=== PATIENT | female | born 1940 | race Caucasian/White ===

== ENCOUNTER 2016-11-26 16:53 | Emergency (ER) | payer MEDICARE, MEDICAID ==
[~2016-11-26] VITALS: Ht 160 cm; Wt 90.0 kg
[~2016-11-26 16:53] MED LIST: /BISO10TA; ASPI81CH32 PO; BABY81CH; BISO10TA6 PO; CALCIUM PO; CHOLECALCIFEROL PO; CRES5TAB; HYDR25TA6; LIPI20TA PO; LISI20TA5; LOSA50TA20 PO; NITR0.4S; NITR4TASL SL; PLAV1TAB2 PO; PLAV75TA2; TAGAMET; ZANTTAB PO
[2016-11-26] MEDS ORDERED: NS 500 ML IV ONE (17:15)
[2016-11-26] MEDS ORDERED: NS 1,000 ML IV SCH (17:15)
[2016-11-26 18:36] LABS: MEAN CORPUSCULAR HEMOGLOBIN 29.3 pg (27.0-33.0); MEAN CORPUSCULAR HGB CONC 34.4 g/dl (32.0-36.5); MEAN CORPUSCULAR VOLUME 85.2 fl (80.0-96.0); PLATELET COUNT, AUTOMATED 181 10^3/uL (150-450); RED CELL DISTRIBUTION WIDTH 14.4 % (11.5-14.5)
[2016-11-26 18:44] LABS: ADD MANUAL DIFFER YES; DIFF SLIDE NUMBER 316
[2016-11-26 18:59] LABS: ALBUMIN 3.5 GM/DL (3.2-5.2); ALKALINE PHOSPHATASE 82 U/L (45-117); ALT/SGPT 31 U/L (12-78); ANION GAP 6 MEQ/L (8-16); AST/SGOT 22 U/L (15-37); BILIRUBIN,DIRECT 0.2 MG/DL (0.0-0.2); BILIRUBIN,TOTAL 0.6 MG/DL (0.2-1.0); BLOOD UREA NITROGEN 12 MG/DL (7-18); CALCIUM LEVEL 8.8 MG/DL (8.8-10.2); CARBON DIOXIDE LEVEL 26 MEQ/L (21-32); CHLORIDE LEVEL 102 MEQ/L (98-107); CREATININE FOR GFR 0.63 MG/DL (0.55-1.02); GLOMERULAR FILTRATION RATE > 60.0 (>39); GLUCOSE, FASTING 121 MG/DL (83-110); SODIUM LEVEL 134 MEQ/L (136-145); TOTAL PROTEIN 7.4 GM/DL (6.4-8.2)
--- NOTE | 2016-11-26 19:02 | REP ---
HISTORY: Abdominal pain. Nausea, vomiting and diarrhea. COMPARISON: Chest 11/19/2015. FINDINGS: Supine and upright views of the abdomen show the intestinal gas pattern to be nonspecific. Gas and stool is seen throughout the colon within the rectosigmoid region. The organ silhouettes insofar as delineated appear unremarkable. No abdominal calcific densities are seen within the abdomen or pelvis. The accompanying single frontal view of the chest shows no free subdiaphragmatic air, cardiomegaly, infiltrates or effusions. IMPRESSION: Nonspecific intestinal gas pattern. The accompanying frontal view of the chest is unchanged from the prior exam. Signed by Yomi Torres DO 11/26/2016 07:33 P
[2016-11-26 19:34] LABS: EOSINOPHILS 3 % (0-5)
[2016-11-26] MEDS ORDERED: ZOFR4TAB3 PO (21:17)
[2016-11-26 21:30] VITALS: BP 155/67
[2016-11-26] MEDS ORDERED: ONDANSETRON 4 MG ORAL DISINTEGRATING TAB (S0181) PO ONE (21:30)
--- NOTE | 2016-11-27 20:42 | ECGEPIP ---
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
== END 2016-11-26 21:34 | disposition home or self-care (01) ==
LOC: M ED 16:53
DX: R11.2 Nausea with vomiting, unspecified (principal); R19.7 Diarrhea, unspecified; I11.9 Hypertensive heart disease without heart failure; E78.5 Hyperlipidemia, unspecified; Z95.1 Presence of aortocoronary bypass graft; Z79.899 Other long term (current) drug therapy; Z79.82 Long term (current) use of aspirin

== ENCOUNTER → 2017-02-17 | Outpatient (CLI) | payer MEDICARE ==
[~2017-02-17] MED LIST changes: +ZOFR4TAB3 PO
--- NOTE | 2017-02-17 09:31 | REPMRS ---
Patient History The patient states she had a clinical breast exam in 02/15 Patient is postmenopausal. No known family history of cancer. Digital Woman Screen Mammo: February 17, 2017 - Exam #: [id number] Bilateral CC and MLO view(s) were taken. Technologist: Latyoa Anderson, Technologist Prior study comparison: January 17, 2016, digital woman screen mammo performed at [facility] to [facility]. January 16, 2015, digital woman screen mammo performed at [facility] to [facility]. FINDINGS: There are scattered fibroglandular densities. There has been no change in the appearance of the mammogram from the prior studies. There is a mild amount of residual fibroglandular tissue which is fairly symmetric. There is no interval development of dominant mass, architectural distortion, or clustered microcalcification suggestive of malignancy. ASSESSMENT: BI-RADS/ACR category 1 mammogram. Negative. Recommendation Routine screening mammogram in 1 year (for women over age 40). This mammogram was interpreted with the aid of an FDA-approved computer-aided dectection system. Electronically Signed By: Curt Infante MD 02/17/17 0921
== END ==
LOC: M WHC 08:04
PROVIDERS: ATTEND Nurse Practitioner Family
DX: Z12.31 Encounter for screening mammogram for malignant neoplasm of breast (principal); Z78.0 Asymptomatic menopausal state

== ENCOUNTER 2018-04-20 05:43 | Emergency (ER) | payer MEDICARE ==
[~2018-04-20] VITALS: Ht 157.5 cm; Wt 90.0 kg
[~2018-04-20 05:43] MED LIST changes: -LOSA50TA20 PO; +LOSA50TA88 PO; +ZOFR4TAB14 PO; -ZOFR4TAB3 PO
[2018-04-20] MEDS ORDERED: METH2.5T48 (05:54)
[2018-04-20] MEDS ORDERED: FOLI800C PO (05:54)
[2018-04-20] MEDS ORDERED: ASPIRIN 325 MG TAB PO ONE (06:30)
[2018-04-20 06:33] LABS: BASO % 0.6 % (0.0-1.0); EOS # 0.3 10^3/uL (0.0-0.50); EOS % 4.3 % (0.0-3.0); HEMATOCRIT 40.1 % (36.0-47.0); HEMOGLOBIN 13.6 g/dl (12.0-15.5); LYMPH % 27.2 % (24.0-44.0); MEAN CORPUSCULAR HEMOGLOBIN 29.6 pg (27.0-33.0); MEAN CORPUSCULAR HGB CONC 33.9 g/dl (32.0-36.5); MEAN CORPUSCULAR VOLUME 87.2 fl (80.0-96.0); MONO # 0.7 10^3/uL (0.0-0.8); MONO % 9.8 % (0.0-5.0); NEUTROPHILS # 4.1 10^3/uL (1.8-7.7); NEUTROPHILS % 57.7 % (36.0-66.0); PLATELET COUNT, AUTOMATED 171 10^3/uL (150-450); WHITE BLOOD COUNT 7.2 10^3/uL (4.0-10.0)
[2018-04-20 06:37] LABS: INR 0.99; PROTHROMBIN TIME 13.2 SECONDS (12.1-14.4)
[2018-04-20 06:38] LABS: PARTIAL THROMBOPLASTIN TIME 28.7 SECONDS (25.4-37.6)
[2018-04-20 06:47] LABS: BLOOD UREA NITROGEN 9 MG/DL (7-18); CALCIUM LEVEL 8.8 MG/DL (8.8-10.2); CARBON DIOXIDE LEVEL 26 MEQ/L (21-32); CHLORIDE LEVEL 107 MEQ/L (98-107); CPK CREATINE PHOSPHOKINASE 111 U/L (26-192); CREATININE FOR GFR 0.71 MG/DL (0.55-1.30); GLOMERULAR FILTRATION RATE > 60.0 (>39); GLUCOSE, FASTING 118 MG/DL (70-100); MB/CK RELATIVE INDEX 1.62 (< OR =4); POTASSIUM SERUM 3.7 MEQ/L (3.5-5.1); SODIUM LEVEL 142 MEQ/L (136-145); TROPONIN I < 0.02 NG/ML (< 0.10)
--- NOTE | 2018-04-20 07:28 | ECGEPIP ---
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
[2018-04-20 08:33] LABS: CPK CREATINE PHOSPHOKINASE 109 U/L (26-192); MB/CK RELATIVE INDEX 1.56 (< OR =4); TROPONIN I < 0.02 NG/ML (< 0.10)
--- NOTE | 2018-04-20 08:36 | REP ---
Chest one-view HISTORY: Chest pain Comparison: 11/19/2015 The lungs are clear. The heart is normal in size. The pulmonary vasculature is normal in appearance. Impression: No acute disease. Electronically Signed by Woo Heath MD 04/20/2018 08:28 A
[2018-04-20 09:00] VITALS: BP 139/76
--- NOTE | 2018-04-21 06:21 | ECGEPIP ---
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
== END 2018-04-20 09:17 | disposition home or self-care (01) ==
LOC: M ED 05:43
DX: R07.89 Other chest pain (principal); M79.602 Pain in left arm; I10 Essential (primary) hypertension; E78.5 Hyperlipidemia, unspecified; K21.9 Gastro-esophageal reflux disease without esophagitis; F41.9 Anxiety disorder, unspecified; M19.90 Unspecified osteoarthritis, unspecified site; Z95.5 Presence of coronary angioplasty implant and graft; Z95.1 Presence of aortocoronary bypass graft; Z79.899 Other long term (current) drug therapy; Z79.82 Long term (current) use of aspirin

== ENCOUNTER → 2018-05-28 | Outpatient (CLI) | payer MEDICARE ==
[~2018-05-28] MED LIST changes: +FOLI800C PO; +METH2.5T48
--- NOTE | 2018-05-28 10:04 | REPMRS ---
Patient History The patient states she had a clinical breast exam in 04/2018. Patient is postmenopausal. No known family history of cancer. No Hormone Replacement Therapy 3D TOMOSYNTHESIS WAS PERFORMED. Digital Woman Screen Mammo: May 28, 2018 - Exam #: [id number] Bilateral CC and MLO view(s) were taken. Technologist: Aleshia Deal, Technologist Prior study comparison: February 17, 2017, digital woman screen mammo performed at [facility] [employer] to [facility]. January 17, 2016, digital woman screen mammo performed at [facility] to [facility]. FINDINGS: There are scattered fibroglandular densities. There has been no change in the appearance of the mammogram from the prior studies. There is a mild amount of residual fibroglandular tissue which is fairly symmetric. There is no interval development of dominant mass, architectural distortion, or clustered microcalcification suggestive of malignancy. Assessment: BI-RADS/ACR category 1 mammogram. Negative Mammogram. Recommendation Routine screening mammogram in 1 year (for women over age 40). This mammogram was interpreted with the aid of an FDA-approved computer-aided dectection system. Electronically Signed By: Curt Infante MD 05/28/18 1656
== END ==
LOC: M WHC 08:56
PROVIDERS: ATTEND Physician Assistant Medical
DX: Z12.31 Encounter for screening mammogram for malignant neoplasm of breast (principal)

== ENCOUNTER → 2019-04-01 | Outpatient (REF) | payer MEDICARE ==
[~2019-04-01] MED LIST changes: -/BISO10TA; -ASPI81CH32 PO; +ASPI81CH33 PO; +BISO10TA14 PO; -BISO10TA6 PO; -METH2.5T48; +METH2.5T48 PO; +ZANT150T40 PO; -ZANTTAB PO; +ZEBE1TAB
== END ==
LOC: M LAB REF 12:16
PROVIDERS: ATTEND Physician Assistant
DX: R35.0 Frequency of micturition (principal)

== ENCOUNTER → 2020-07-04 | Outpatient (REF) | payer MEDICARE ==
[2020-07-04 16:44] LABS: BASO # 0.1 10^3/uL (0.0-0.2); BASO % 0.9 % (0.0-1.0); EOS # 0.2 10^3/uL (0.0-0.5); EOS % 3.2 % (0.0-3.0); HEMATOCRIT 41.4 % (36.0-47.0); HEMOGLOBIN 13.5 g/dl (12.0-15.5); LYMPH % 26.6 % (24.0-44.0); MEAN CORPUSCULAR HEMOGLOBIN 29.5 pg (27.0-33.0); MEAN CORPUSCULAR HGB CONC 32.6 g/dl (32.0-36.5); MEAN CORPUSCULAR VOLUME 90.4 fl (80.0-96.0); MONO # 0.6 10^3/uL (0.0-0.8); MONO % 8.3 % (2.0-8.0); NEUTROPHILS # 4.6 10^3/uL (1.5-8.5); NEUTROPHILS % 60.7 % (36.0-66.0); PLATELET COUNT, AUTOMATED 170 10^3/uL (150-450); RED BLOOD COUNT 4.58 10^6/uL (4.00-5.40); WHITE BLOOD COUNT 7.6 10^3/uL (4.0-10.0)
[2020-07-04 17:11] LABS: ALBUMIN 3.6 GM/DL (3.2-5.2); ALT/SGPT 24 U/L (12-78); BILIRUBIN,TOTAL 0.3 MG/DL (0.2-1.0); BLOOD UREA NITROGEN 12 MG/DL (7-18); CALCIUM LEVEL 9.3 MG/DL (8.8-10.2); CARBON DIOXIDE LEVEL 28 MEQ/L (21-32); CHLORIDE LEVEL 108 MEQ/L (98-107); CREATININE FOR GFR 0.58 MG/DL (0.55-1.30); GLOMERULAR FILTRATION RATE > 60.0 (>39); GLUCOSE, FASTING 121 MG/DL (70-100); POTASSIUM SERUM 3.9 MEQ/L (3.5-5.1); SODIUM LEVEL 141 MEQ/L (136-145); TOTAL PROTEIN 7.2 GM/DL (6.4-8.2)
[2020-07-04 18:15] LABS: ERYTHROCYTE SEDIMENTATION RATE 35 mm/hr (0-30)
== END ==
LOC: M SFHCRHEU 14:16
PROVIDERS: ATTEND Internal Medicine Rheumatology
DX: L40.0 Psoriasis vulgaris (principal)
CPT/HCPCS: 80053; 81374; 85025; 85652; 86140; G0463

== ENCOUNTER → 2020-07-16 | Outpatient (CLI) | payer MEDICARE ==
--- NOTE | 2020-07-16 11:41 | REP ---
INDICATION: PSORIASIS VULGARIS. COMPARISON: 09/22/2012 TECHNIQUE: Multiple views of the lumbosacral spine. FINDINGS: Once again, there is degenerative disc space narrowing seen at every level which has increased from the prior exam. Note is again made of anterior lipping status quo. There is endplate sclerosis involving multiple levels also increased somewhat from the prior exam. There is no significant change in the appearance of vertebral body height or alignment. Heavy bilateral marginal osteophyte formation is again seen also increased from the prior exam. Flexion and extension bending views show no evidence of instability. Degenerative facet joint changes are again seen bilaterally at every level particularly L4-5 L5-S1 also increased somewhat from the prior exam. IMPRESSION: Chronic changes as described above. <Electronically signed by Yomi Torres > 07/16/20 [id number]
--- NOTE | 2020-07-16 11:48 | REP ---
INDICATION: PSORIASIS VULGARIS. COMPARISON: None. TECHNIQUE: Four views sacroiliac joints. FINDINGS: There is no fracture or dislocation of the visualized osseous structures. I do not see significant arthritic changes at the sacroiliac joints bilaterally. IMPRESSION: No significant arthritic changes at the sacroiliac joints bilaterally. <Electronically signed by Curt Infante > 07/16/20 [id number]
--- NOTE | 2020-07-16 11:53 | REP ---
INDICATION: PSORIASIS VULGARIS COMPARISON: None. TECHNIQUE: Four views bilateral feet. FINDINGS: There is no evidence of acute fracture, dislocation, or intrinsic bone disease.There is mild bilateral inferior calcaneal spurring, as well as a tiny posterior calcaneal spur on the left. Mild narrowing and subchondral sclerosis at the talonavicular joint bilaterally. There is mild narrowing and subchondral sclerosis at the 1st metatarsophalangeal joint bilaterally. There is mild spurring at the medial margin of the right 1st metatarsophalangeal joint. IMPRESSION: No fracture or dislocation. Mild degenerative changes as discussed above. <Electronically signed by Curt Infante > 07/16/20 [id number]
--- NOTE | 2020-07-16 12:00 | REP ---
INDICATION: PSORIASIS VULGARIS COMPARISON: None. TECHNIQUE: Four views bilateral hands. FINDINGS: There is no evidence of acute fracture, dislocation, or intrinsic bone disease.There is moderate narrowing and sclerosis at the joint between the left scaphoid and adjacent trapezium. Mild narrowing of the left 1st interphalangeal joint. There is moderate diffuse narrowing and mild subchondral sclerosis and spurring of left 2nd through 5th distal interphalangeal joints with erosive changes at the 2nd and 5th DIP joint articulating surfaces. On the right there is mild narrowing at the joint between the scaphoid and trapezium as well as trapezium and base of 1st metacarpal. Mild radiocarpal joint space narrowing. There is mild narrowing and spurring at the 1st interphalangeal joint. There is mild to moderate diffuse narrowing and subchondral sclerosis of the 2nd through 5th distal interphalangeal joints with mild spurring at the margins of the 2nd and 3rd DIP joints. IMPRESSION: No fracture or dislocation. Degenerative changes as discussed above. <Electronically signed by Curt Infante > 07/16/20 [id number]
== END ==
LOC: M WUC 08:21
PROVIDERS: ATTEND Internal Medicine Rheumatology
DX: L40.0 Psoriasis vulgaris (principal)

== ENCOUNTER 2021-06-11 17:19 | Emergency (ER) | payer MEDICAID, MEDICARE ==
[~2021-06-11] VITALS: Ht 160 cm; Wt 90.9 kg
[~2021-06-11 17:19] MED LIST changes: +LOSA50TA28 PO; -LOSA50TA88 PO
[2021-06-11] MEDS ORDERED: FLUTISP (17:39)
[2021-06-11] MEDS ORDERED: NS 1,000 ML IV SCH (18:15)
[2021-06-11] MEDS ORDERED: ONDANSETRON 4MG/2ML VIAL IV ONE (18:15)
[2021-06-11 19:10] LABS: BASO % 0.3 % (0.0-1.0); HEMATOCRIT 41.9 % (36.0-47.0); HEMOGLOBIN 14.1 g/dl (12.0-15.5); LYMPH # 0.3 10^3/uL (1.5-5.0); LYMPH % 4.6 % (24.0-44.0); MEAN CORPUSCULAR HGB CONC 33.7 g/dl (32.0-36.5); MEAN CORPUSCULAR VOLUME 92.1 fl (80.0-96.0); MONO # 0.3 10^3/uL (0.0-0.8); MONO % 5.1 % (2.0-8.0); NEUTROPHILS # 5.7 10^3/uL (1.5-8.5); NEUTROPHILS % 89.8 % (36.0-66.0); PLATELET COUNT, AUTOMATED 176 10^3/uL (150-450); RED BLOOD COUNT 4.55 10^6/uL (4.00-5.40); WHITE BLOOD COUNT 6.3 10^3/uL (4.0-10.0)
[2021-06-11 19:41] LABS: ALBUMIN 3.7 GM/DL (3.2-5.2); ALT/SGPT 32 U/L (12-78); BILIRUBIN,DIRECT 0.3 MG/DL (0.0-0.2); BLOOD UREA NITROGEN 20 MG/DL (7-18); CALCIUM LEVEL 9.7 MG/DL (8.8-10.2); CARBON DIOXIDE LEVEL 27 MEQ/L (21-32); CHLORIDE LEVEL 104 MEQ/L (98-107); GLOMERULAR FILTRATION RATE > 60.0 (>32); GLUCOSE, FASTING 136 MG/DL (70-100); LIPASE 49 U/L (73-393); POTASSIUM SERUM 3.7 MEQ/L (3.5-5.1); SODIUM LEVEL 139 MEQ/L (136-145); TOTAL PROTEIN 7.4 GM/DL (6.4-8.2)
[2021-06-11] MEDS ORDERED: ISOVUE-370 76% 100ML VIAL As Ordered ONE (20:05)
[2021-06-11 21:05] LABS: CK-MB VALUE MASS 1.4 NG/ML (<3.6); MB/CK RELATIVE INDEX 2.12 (< OR =4)
[2021-06-11 22:14] LABS: CK-MB VALUE MASS 1.3 NG/ML (<3.6); MB/CK RELATIVE INDEX 1.53 (< OR =4)
[2021-06-11 23:17] VITALS: BP 149/67
== END 2021-06-11 23:33 | disposition home or self-care (01) ==
LOC: EDBD 17:19 → M ED 17:19
DX: I47.9 Paroxysmal tachycardia, unspecified (principal); R10.9 Unspecified abdominal pain; R19.7 Diarrhea, unspecified; I10 Essential (primary) hypertension; I25.10 Atherosclerotic heart disease of native coronary artery without angina pectoris; E78.5 Hyperlipidemia, unspecified; M19.90 Unspecified osteoarthritis, unspecified site; M85.9 Disorder of bone density and structure, unspecified; Z79.899 Other long term (current) drug therapy; Z79.82 Long term (current) use of aspirin
CPT/HCPCS: 74177; 80048; 80076; 82550; 82553; 83690; 84484; 85025; 93005; 93041; 96361; 96374; 99285; J2405; Q9967

== ENCOUNTER → 2021-06-24 | Outpatient (REF) | payer MEDICARE ==
[~2021-06-24] MED LIST changes: +FLUTISP
== END ==
LOC: M WUC 10:06
PROVIDERS: ATTEND Physician Assistant
DX: R10.30 Lower abdominal pain, unspecified (principal); R19.7 Diarrhea, unspecified

== ENCOUNTER → 2023-04-13 | Outpatient (REF) | payer MEDICARE ==
[~2023-04-13] MED LIST changes: +CLOP75TA99 PO; -PLAV1TAB2 PO
== END ==
LOC: M SFHCWAGY 12:53
PROVIDERS: ATTEND Nurse Practitioner Family
DX: N39.0 Urinary tract infection, site not specified (principal)

== ENCOUNTER 2023-09-09 05:33 | Emergency (ER) | payer MEDICARE ==
[~2023-09-09] VITALS: Ht 157.5 cm; Wt 81.8 kg
[2023-09-09] MEDS: LIDOCAINE 2% 5ML JELLY UROJET TOP ONE ×2 (06:35→08:00)
[2023-09-09] MEDS: NS 500 ML IV ONE (06:55)
[2023-09-09 07:13] LABS: BASO # 0.1 10^3/uL (0.0-0.2); BASO % 0.7 % (0.0-1.0); EOS # 0.2 10^3/uL (0.0-0.5); EOS % 2.3 % (0.0-3.0); HEMATOCRIT 39.4 % (36.0-47.0); HEMOGLOBIN 13.4 g/dl (12.0-15.5); LYMPH # 1.1 10^3/uL (1.5-5.0); LYMPH % 11.4 % (24.0-44.0); MEAN CORPUSCULAR HEMOGLOBIN 29.9 pg (27.0-33.0); MEAN CORPUSCULAR VOLUME 87.9 fl (80.0-96.0); MONO # 0.7 10^3/uL (0.0-0.8); MONO % 7.1 % (2.0-8.0); NEUTROPHILS # 7.8 10^3/uL (1.5-8.5); PLATELET COUNT, AUTOMATED 203 10^3/uL (150-450); RED BLOOD COUNT 4.48 10^6/uL (4.00-5.40)
[2023-09-09 07:33] LABS: LIPASE 24 U/L (12-53)
[2023-09-09 07:35] LABS: ALBUMIN 3.8 G/DL (3.2-5.2); ALKALINE PHOSPHATASE 88 U/L (46-116); ALT/SGPT 21 U/L (7.0-40); AST/SGOT 26 U/L (<34); BLOOD UREA NITROGEN 10 MG/DL (9-23); CALCIUM LEVEL 9.7 MG/DL (8.3-10.6); CARBON DIOXIDE LEVEL 25 MMOL/L (20-31); CHLORIDE LEVEL 104 MMOL/L (98-107); CREATININE FOR GFR 0.55 MG/DL (0.55-1.30); GLOMERULAR FILTRATION RATE > 60.0 (>32); GLUCOSE, FASTING 130 MG/DL (74-106); SODIUM LEVEL 136 MMOL/L (136-145); TOTAL PROTEIN 7.5 G/DL (5.7-8.2)
[2023-09-09] MEDS ORDERED: MACR100C43 PO (10:24)
[2023-09-09] MEDS: NITROFURANTOIN (MACROBID) 100 MG CAP PO ONE (10:30)
[2023-09-09 10:31] VITALS: BP 145/73; TEMP 97.1; O2SAT 97
== END 2023-09-09 10:47 | disposition home or self-care (01) ==
LOC: M ED 05:33
DX: N81.10 Cystocele, unspecified (principal); N39.0 Urinary tract infection, site not specified; N13.2 Hydronephrosis with renal and ureteral calculous obstruction; Z95.1 Presence of aortocoronary bypass graft; Z95.5 Presence of coronary angioplasty implant and graft; I25.2 Old myocardial infarction; E78.00 Pure hypercholesterolemia, unspecified; Z87.01 Personal history of pneumonia (recurrent); K21.9 Gastro-esophageal reflux disease without esophagitis; Z87.440 Personal history of urinary (tract) infections; M54.9 Dorsalgia, unspecified; Z79.82 Long term (current) use of aspirin; Z79.899 Other long term (current) drug therapy

== ENCOUNTER 2023-09-11 03:42 | Emergency (ER) | payer MEDICARE ==
[~2023-09-11] VITALS: Ht 157.5 cm; Wt 84.2 kg
[~2023-09-11 03:42] MED LIST changes: +MACR100C43 PO
[2023-09-11 05:00] VITALS: TEMP 98
[2023-09-11 05:10] LABS: BASO # 0.1 10^3/uL (0.0-0.2); BASO % 0.7 % (0.0-1.0); EOS # 0.4 10^3/uL (0.0-0.5); HEMATOCRIT 37.2 % (36.0-47.0); HEMOGLOBIN 12.5 g/dl (12.0-15.5); LYMPH # 1.1 10^3/uL (1.5-5.0); LYMPH % 13.2 % (24.0-44.0); MEAN CORPUSCULAR HGB CONC 33.6 g/dl (32.0-36.5); MEAN CORPUSCULAR VOLUME 89.2 fl (80.0-96.0); MONO # 0.7 10^3/uL (0.0-0.8); MONO % 8.9 % (2.0-8.0); NEUTROPHILS # 5.8 10^3/uL (1.5-8.5); NEUTROPHILS % 71.8 % (36.0-66.0); PLATELET COUNT, AUTOMATED 161 10^3/uL (150-450); RED BLOOD COUNT 4.17 10^6/uL (4.00-5.40); WHITE BLOOD COUNT 8.1 10^3/uL (4.0-10.0)
[2023-09-11 05:39] LABS: CK-MB VALUE MASS 7.9 NG/ML (<3.6)
[2023-09-11 05:42] LABS: BLOOD UREA NITROGEN 7 MG/DL (9-23); CALCIUM LEVEL 9.2 MG/DL (8.3-10.6); CARBON DIOXIDE LEVEL 28 MMOL/L (20-31); CHLORIDE LEVEL 105 MMOL/L (98-107); CREATININE FOR GFR 0.57 MG/DL (0.55-1.30); GLOMERULAR FILTRATION RATE > 60.0 (>32); GLUCOSE, FASTING 124 MG/DL (74-106); POTASSIUM SERUM 3.8 MMOL/L (3.5-5.1); SODIUM LEVEL 140 MMOL/L (136-145)
[2023-09-11 05:45] LABS: CPK CREATINE PHOSPHOKINASE 428 U/L (34-145); MB/CK RELATIVE INDEX 1.84 (< OR =4)
[2023-09-11 06:30] VITALS: BP 169/79; O2SAT 94
== END 2023-09-11 07:09 | disposition home or self-care (01) ==
LOC: M ED 03:42
DX: R00.2 Palpitations (principal); I51.7 Cardiomegaly; I49.1 Atrial premature depolarization; I10 Essential (primary) hypertension; E78.5 Hyperlipidemia, unspecified; I25.2 Old myocardial infarction; E55.9 Vitamin D deficiency, unspecified; Z79.82 Long term (current) use of aspirin; Z79.02 Long term (current) use of antithrombotics/antiplatelets; Z79.899 Other long term (current) drug therapy; Z79.811 Long term (current) use of aromatase inhibitors

== ENCOUNTER 2023-09-12 21:10 | Emergency (ER) | payer MEDICARE ==
[~2023-09-12] VITALS: Ht 157.5 cm; Wt 84.8 kg
[2023-09-13 02:05] VITALS: BP 158/70; TEMP 97.6; O2SAT 99
== END 2023-09-13 01:50 | disposition home or self-care (01) ==
LOC: M ED 21:10
DX: R33.9 Retention of urine, unspecified (principal); N81.9 Female genital prolapse, unspecified; I25.119 Atherosclerotic heart disease of native coronary artery with unspecified angina pectoris; I25.2 Old myocardial infarction; K21.9 Gastro-esophageal reflux disease without esophagitis; M54.50 Low back pain, unspecified; Z79.1 Long term (current) use of non-steroidal anti-inflammatories (NSAID); Z79.899 Other long term (current) drug therapy

== ENCOUNTER 2023-09-27 18:27 | Emergency (ER) | payer MEDICARE ==
[~2023-09-27] VITALS: Ht 157.5 cm; Wt 84.1 kg
[2023-09-27] MEDS ORDERED: LOSA25TA13 (18:46)
[2023-09-27] MEDS ORDERED: ATOR1TAB21 (18:46)
[2023-09-27] MEDS: cefTRIAXone SOD 1 GM in D5W MINI-BAG PLUS 50 ML IV ONE (22:00)
[2023-09-27] MEDS ORDERED: CEFP200T PO (22:27)
[2023-09-27 22:38] VITALS: BP 150/69; TEMP 97.6; O2SAT 96
[2023-10-01] MEDS ORDERED: BISO10TA13 PO (08:26)
== END 2023-09-27 22:40 | disposition home or self-care (01) ==
LOC: M ED 18:27
DX: N39.0 Urinary tract infection, site not specified (principal); I25.2 Old myocardial infarction; E78.5 Hyperlipidemia, unspecified; K21.9 Gastro-esophageal reflux disease without esophagitis; Z95.5 Presence of coronary angioplasty implant and graft; Z79.899 Other long term (current) drug therapy; Z79.82 Long term (current) use of aspirin
CPT/HCPCS: 51702; 81001; 87088; 87186; 96365; 99284; J0696

== ENCOUNTER 2023-10-15 01:14 | Emergency (ER) | payer MEDICARE ==
[~2023-10-15] VITALS: Ht 157.5 cm; Wt 81.8 kg
[2023-10-15 01:14] VITALS: TEMP 98.2
[~2023-10-15 01:14] MED LIST changes: +ATOR1TAB21; +BISO10TA13 PO; +CEFP200T PO; +LOSA25TA13
[2023-10-15] MEDS ORDERED: CEFDINIR 300 MG CAP (OMNICEF) PO ONE (06:35)
[2023-10-15 06:47] VITALS: BP 171/86; O2SAT 99
== END 2023-10-15 06:49 | disposition home or self-care (01) ==
LOC: M ED 01:14
DX: Z46.6 Encounter for fitting and adjustment of urinary device (principal); E11.9 Type 2 diabetes mellitus without complications; I25.10 Atherosclerotic heart disease of native coronary artery without angina pectoris; I25.2 Old myocardial infarction; I10 Essential (primary) hypertension; E78.5 Hyperlipidemia, unspecified; Z87.448 Personal history of other diseases of urinary system; Z95.5 Presence of coronary angioplasty implant and graft; Z95.1 Presence of aortocoronary bypass graft; Z79.82 Long term (current) use of aspirin; Z79.899 Other long term (current) drug therapy

== ENCOUNTER → 2024-06-16 | Outpatient (CLI) | payer OTHER, MEDICAID | LOC: M CARPUL 14:09 | PROVIDERS: ATTEND Physician Assistant | DX: I08.0 Rheumatic disorders of both mitral and aortic valves (principal); I77.810 Thoracic aortic ectasia ==

== ENCOUNTER → 2025-01-09 | Outpatient (REF) | payer OTHER, MEDICAID | LOC: M LAB REF 12:13 | PROVIDERS: ATTEND Physician Assistant | DX: R30.0 Dysuria (principal) ==

== ENCOUNTER 2025-01-19 09:52 | Emergency (ER) | payer OTHER, MEDICAID ==
[~2025-01-19] VITALS: Ht 157.5 cm; Wt 80.6 kg
[2025-01-19 11:24] LABS: PLATELET COUNT, AUTOMATED 249 10^3/uL (150-450)
[2025-01-19 11:49] LABS: CALCIUM LEVEL 8.7 MG/DL (8.3-10.6); CARBON DIOXIDE LEVEL 27.0 MMOL/L (20-31); CHLORIDE LEVEL 102.0 MMOL/L (98-107); CREATININE FOR GFR 0.72 MG/DL (0.55-1.30); GLOMERULAR FILTRATION RATE 82.4 (>32); POTASSIUM SERUM 4.3 MMOL/L (3.5-5.1); SODIUM LEVEL 138.0 MMOL/L (136-145)
[2025-01-19 12:10] LABS: KETONE, URINE AUTO RFX NEGATIVE (NEGATIVE); MUCUS, URINE RFX SMALL (NEGATIVE); NITRITE, URINE AUTO RFX NEGATIVE (NEGATIVE); RBC, URINE AUTO RFX TNTC /HPF (0-3); SQUAM EPITHELIAL CELL UR AURFX 7 /HPF (0-6)
[2025-01-19 12:32] LABS: LEUKOCYTE ESTERASE UR AUTO RFX 2+ (NEGATIVE); WBC, URINE AUTO RFX 41 /HPF (0-3)
[2025-01-19] MEDS ORDERED: ISOVUE-370 76% 100 ML VIAL As Ordered ONE (13:12)
[2025-01-19] MEDS: ACETAMINOPHEN *IV* 1,000 MG in IV 1 EA IV ONE (13:13)
[2025-01-19 14:42] LABS: C REACTIVE PROTEIN QUANTITATIV 2.39 MG/DL (<1.0); CPK CREATINE PHOSPHOKINASE 71.0 U/L (34-145)
[2025-01-19] MEDS ORDERED: CIPR-249 PO (15:34)
[2025-01-19] MEDS ORDERED: FURO20TA2 PO (15:34)
[2025-01-19 15:41] VITALS: BP 102/61; TEMP 96.9; O2SAT 94
== END 2025-01-19 15:43 | disposition home or self-care (01) ==
LOC: M ED 09:52
DX: N39.0 Urinary tract infection, site not specified (principal); N81.10 Cystocele, unspecified; R22.43 Localized swelling, mass and lump, lower limb, bilateral; I25.2 Old myocardial infarction; K21.9 Gastro-esophageal reflux disease without esophagitis; E78.5 Hyperlipidemia, unspecified; Z95.5 Presence of coronary angioplasty implant and graft; Z79.82 Long term (current) use of aspirin; Z79.899 Other long term (current) drug therapy
CPT/HCPCS: 71046; 74177; 80048; 81001; 82550; 83605; 83880; 85027; 85652; 86140; 87086; 96365; 96366; 99283; J0134; Q9967

== ENCOUNTER 2025-01-29 09:04 | Inpatient (IN) | payer OTHER, MEDICAID ==
[~2025-01-29] VITALS: Ht 157.5 cm; Wt 79.6 kg
[2025-01-29] VITALS (17 sets, daily range): BP systolic 76–115; BP diastolic 41–58; TEMP 97.2–97.4; O2SAT 85–98
[~2025-01-29 09:04] MED LIST changes: -ATOR1TAB21; +ATOR1TAB21 PO; +CIPR-249 PO; +FURO20TA2 PO; -LOSA25TA13; +LOSA25TA13 PO
[2025-01-29 09:47] LABS: VENOUS BASE EXCESS -0.7 (-2.0-2.0); VENOUS HCO3 24.3 MMOL/L (23.0-27.0); VENOUS O2 SATURATION 49.7 % (60.0-80.0); VENOUS PARTIAL PRESSURE CO2 41.7 mmHg (38.0-50.0); VENOUS PARTIAL PRESSURE O2 29.3 mmHg (30.0-50.0); VENOUS PH 7.384 UNITS (7.330-7.430); VENOUS STANDARD HCO3 22.8 MMOL/L; VENOUS TOTAL CO2 25.6 MMOL/L (24.0-28.0)
[2025-01-29 09:49] LABS: ABG BASE EXCESS 0.5 (-2.0-2.0); ABG HCO3 22.6 MMOL/L (22.0-26.0); ABG O2 SATURATION 95.5 % (95.0-99.0); ABG PARTIAL PRESSURE CO2 28.8 mmHg (35.0-45.0); ABG PARTIAL PRESSURE O2 78.1 mmHg (75.0-100.0); ABG STANDARD HCO3 24.9 MMOL/L. (22.0-26.0); ABG TOTAL CO2 23.5 MMOL/L (23.0-31.0); ABG pH (ARTERIAL) 7.512 UNITS (7.350-7.450)
[2025-01-29] MEDS ORDERED: ISOVUE-370 76% 100 ML VIAL As Ordered ONE (09:50)
[2025-01-29 09:51] LABS: BASO # 0.0 10^3/uL (0.0-0.2); BASO % 0.2 % (0.0-1.0); EOS # 0.2 10^3/uL (0.0-0.5); EOS % 1.4 % (0.0-3.0); LYMPH # 0.6 10^3/uL (1.5-5.0); LYMPH % 6.0 % (24.0-44.0); MONO # 1.0 10^3/uL (0.0-0.8); MONO % 9.3 % (2.0-8.0); NEUTROPHILS # 8.6 10^3/uL (1.5-8.5); NEUTROPHILS % 81.9 % (36.0-66.0); PLATELET COUNT, AUTOMATED 218 10^3/uL (150-450)
[2025-01-29 10:13] LABS: INR 1.2
[2025-01-29 10:18] LABS: ALT/SGPT 30.0 U/L (7.0-40); AST/SGOT 58.0 U/L (<34); CALCIUM LEVEL 9.2 MG/DL (8.3-10.6); CARBON DIOXIDE LEVEL 25.0 MMOL/L (20-31); CHLORIDE LEVEL 103.0 MMOL/L (98-107); CREATININE FOR GFR 0.82 MG/DL (0.55-1.30); GLOMERULAR FILTRATION RATE 70.5 (>32); POTASSIUM SERUM 3.9 MMOL/L (3.5-5.1); SODIUM LEVEL 140.0 MMOL/L (136-145)
[2025-01-29] MEDS: NS 0.9% IV STA (10:20)
[2025-01-29] MEDS: PIPERACILLIN/TAZOBACTAM SOD 4.5 GM in DEXTROSE 5% (D5W) ADV/MINI-BAG 50 ML IV ONE (10:20)
[2025-01-29] MEDS: [UNRECOGNIZED DRUG - OTHER] IV STA (10:20)
[2025-01-29] MEDS: NS (Normal Saline) 0.9% 2,450 ML in IV 1 EA IV STA (10:26)
[2025-01-29] MEDS: VANCOMYCIN HCL 1,000 MG, VIAL MATE ADAPTER 1 EACH in NS 250 ML IV ONE (11:41)
[2025-01-29] MEDS: AZITHROMYCIN INJ 500 MG, VIAL MATE ADAPTER 1 EACH in NS 250 ML IV SCH (13:23)
[2025-01-29] MEDS: PIPERACILLIN/TAZOBACTAM SOD 3.375 GM in DEXTROSE 5% (D5W) ADV/MINI-BAG 50 ML IV SCH (16:05)
[2025-01-29] MEDS: FUROSEMIDE 20 MG/2 ML VIAL IV ONE (16:57)
[2025-01-29] MEDS ORDERED: VANCOMYCIN HCL 750 MG, VIAL MATE ADAPTER 1 EACH in NS 250 ML IV SCH (20:00)
[2025-01-29] MEDS ORDERED: VANCOMYCIN HCL 1,000 MG, VIAL MATE ADAPTER 1 EACH in NS 250 ML IV SCH (21:00)
[2025-01-29] MEDS: PANTOPRAZOLE 40MG VIAL IV SCH (21:08)
[2025-01-29] MEDS: NS 500 ML IV ONE (23:23)
[2025-01-30] VITALS (28 sets, daily range): BP systolic 92–121; BP diastolic 48–58; TEMP 97.1–98.2; O2SAT 81–94
[2025-01-30 05:38] LABS: PLATELET COUNT, AUTOMATED 182 10^3/uL (150-450)
[2025-01-30 06:13] LABS: ALT/SGPT 25.0 U/L (7.0-40); AST/SGOT 58.0 U/L (<34); CALCIUM LEVEL 7.8 MG/DL (8.3-10.6); CARBON DIOXIDE LEVEL 24.0 MMOL/L (20-31); CHLORIDE LEVEL 109.0 MMOL/L (98-107); CREATININE FOR GFR 0.77 MG/DL (0.55-1.30); GLOMERULAR FILTRATION RATE 76.0 (>32); MAGNESIUM LEVEL 1.8 MG/DL (1.8-2.4); POTASSIUM SERUM 3.3 MMOL/L (3.5-5.1); SODIUM LEVEL 143.0 MMOL/L (136-145)
[2025-01-30] MEDS: VANCOMYCIN HCL 1,000 MG, VIAL MATE ADAPTER 1 EACH in NS 250 ML IV ONE (06:41)
[2025-01-30] MEDS: KCL 10MEQ IN D5/0.45NS 1000ML 1,000 ML IV SCH (08:05)
[2025-01-30 08:13] LABS: ABG BASE EXCESS -2.2 (-2.0-2.0); ABG HCO3 21.1 MMOL/L (22.0-26.0); ABG O2 SATURATION 89.3 % (95.0-99.0); ABG PARTIAL PRESSURE CO2 31.4 mmHg (35.0-45.0); ABG PARTIAL PRESSURE O2 57.8 mmHg (75.0-100.0); ABG STANDARD HCO3 22.5 MMOL/L. (22.0-26.0); ABG TOTAL CO2 22.1 MMOL/L (23.0-31.0); ABG pH (ARTERIAL) 7.445 UNITS (7.350-7.450)
[2025-01-30] MEDS: ASPIRIN 81 MG ENTERIC TABLET PO SCH (08:17)
[2025-01-30] MEDS: ATORVASTATIN 20 MG TAB PO SCH (08:17)
[2025-01-30 08:24] LABS: VANCOMYCIN RANDOM 5.1 UG/ML
[2025-01-30] MEDS: ENOXAPARIN 40 MG/0.4 ML SYRINGE (J1650 PER 10MG) SC SCH (08:24)
[2025-01-30] MEDS ORDERED: ASPI81TA26 PO (11:58)
[2025-01-30] MEDS ORDERED: CALC-234 PO (11:58)
[2025-01-30] MEDS ORDERED: HOME MED LIST COMPLETE! XX SCH (12:00)
[2025-01-30] MEDS: methylPREDNISolone 1,000 MG, VIAL MATE ADAPTER 1 EACH in NS 100 ML IV ONE (12:24)
[2025-01-30] MEDS ORDERED: VANCOMYCIN HCL 750 MG, VIAL MATE ADAPTER 1 EACH in NS 250 ML IV SCH (20:00)
[2025-01-30] MEDS ORDERED: OLANZapine INTRAMUSCULAR 10MG VIAL IM ONE (20:10)
[2025-01-30 20:36] LABS: ABG BASE EXCESS -2.4 (-2.0-2.0); ABG HCO3 20.5 MMOL/L (22.0-26.0); ABG O2 SATURATION 92.3 % (95.0-99.0); ABG PARTIAL PRESSURE CO2 29.1 mmHg (35.0-45.0); ABG PARTIAL PRESSURE O2 60.5 mmHg (75.0-100.0); ABG STANDARD HCO3 22.4 MMOL/L. (22.0-26.0); ABG TOTAL CO2 21.4 MMOL/L (23.0-31.0); ABG pH (ARTERIAL) 7.465 UNITS (7.350-7.450)
[2025-01-31] VITALS (22 sets, daily range): BP systolic 101–132; BP diastolic 56–88; TEMP 97–98.4; O2SAT 82–96
[2025-01-31 05:52] LABS: PLATELET COUNT, AUTOMATED 197 10^3/uL (150-450)
[2025-01-31 06:17] LABS: ALT/SGPT 27.0 U/L (7.0-40); AST/SGOT 62.0 U/L (<34); CALCIUM LEVEL 8.3 MG/DL (8.3-10.6); CARBON DIOXIDE LEVEL 24.0 MMOL/L (20-31); CHLORIDE LEVEL 110.0 MMOL/L (98-107); CREATININE FOR GFR 0.69 MG/DL (0.55-1.30); GLOMERULAR FILTRATION RATE 85.5 (>32); MAGNESIUM LEVEL 1.9 MG/DL (1.8-2.4); POTASSIUM SERUM 3.1 MMOL/L (3.5-5.1); SODIUM LEVEL 145.0 MMOL/L (136-145)
[2025-01-31] MEDS: BUDESONIDE 0.5 MG/2 ML INHALATION SUSPENSION NEB SCH (08:00)
[2025-01-31] MEDS: ALBUTEROL SULFATE 2.5 MG/0.5 ML INH CONCENTRATE NEB SOLN NEB SCH (08:00)
[2025-01-31] MEDS ORDERED: VANCOMYCIN HCL 1,000 MG, VIAL MATE ADAPTER 1 EACH in NS 250 ML IV SCH (08:00)
[2025-01-31] MEDS: POTASSIUM CHLORIDE 10MEQ SR TABLET PO ONE (08:09)
[2025-01-31] MEDS: AZITHROMYCIN 250 MG TABLET PO SCH (10:32)
[2025-01-31] MEDS: methylPREDNISolone 1,000 MG, VIAL MATE ADAPTER 1 EACH in NS 100 ML IV SCH (10:33)
[2025-01-31] MEDS: cefTRIAXone SOD 2 GM in DEXTROSE 5% (D5W) ADV/MINI-BAG 50 ML IV SCH (20:47)
[2025-02-01] VITALS (13 sets, daily range): BP systolic 124; BP diastolic 58; TEMP 97.6; O2SAT 75–92
[2025-02-01 03:51] LABS: ABG BASE EXCESS -3.1 (-2.0-2.0); ABG HCO3 20.2 MMOL/L (22.0-26.0); ABG O2 SATURATION 92.0 % (95.0-99.0); ABG PARTIAL PRESSURE CO2 30.6 mmHg (35.0-45.0); ABG PARTIAL PRESSURE O2 64.4 mmHg (75.0-100.0); ABG STANDARD HCO3 21.8 MMOL/L. (22.0-26.0); ABG TOTAL CO2 21.1 MMOL/L (23.0-31.0); ABG pH (ARTERIAL) 7.437 UNITS (7.350-7.450)
[2025-02-01] MEDS: hydrOXYzine 10 MG/5 ML SYRUP PO ONE (04:49)
[2025-02-01 07:13] LABS: PLATELET COUNT, AUTOMATED 231 10^3/uL (150-450)
[2025-02-01] MEDS ORDERED: HYOSCYAMINE SULFATE 0.125 MG SUBL TABLET PO PRN (07:15)
[2025-02-01] MEDS ORDERED: LORazepam 1 MG TAB PO PRN (07:15)
[2025-02-01] MEDS ORDERED: ATROPINE SULFATE 1% OPHTH SOLN 2 ML BTL SL PRN (07:15)
[2025-02-01] MEDS ORDERED: ONDANSETRON 4MG/2ML VIAL IV PRN (07:15)
[2025-02-01] MEDS: MORPHINE 10 MG/0.5 ML ORAL CONCENTRATE SOLUTION U/D SL PRN (07:25)
[2025-02-01] MEDS ORDERED: ALBUTEROL SULFATE 2.5 MG/0.5 ML INH CONCENTRATE NEB SOLN NEB PRN (07:25)
[2025-02-01 07:41] LABS: ALT/SGPT 44.0 U/L (7.0-40); AST/SGOT 80.0 U/L (<34); CALCIUM LEVEL 9.0 MG/DL (8.3-10.6); CARBON DIOXIDE LEVEL 22.0 MMOL/L (20-31); CHLORIDE LEVEL 111.0 MMOL/L (98-107); CREATININE FOR GFR 0.61 MG/DL (0.55-1.30); GLOMERULAR FILTRATION RATE 88.1 (>32); MAGNESIUM LEVEL 2.1 MG/DL (1.8-2.4); POTASSIUM SERUM 3.1 MMOL/L (3.5-5.1); SODIUM LEVEL 149.0 MMOL/L (136-145)
[2025-02-01] MEDS ORDERED: AZITHROMYCIN 250 MG TABLET PO SCH (09:00)
[2025-02-03 17:48] LABS: URINE STREP PNEUMONIAE ANTIGEN Not Detected (Not Detected)
== END 2025-02-01 07:34 | disposition expired | DRG 189 ==
LOC: M ED 10:39 → M ED INP 12:02 → M ICU 13:09 → M PCU 01-30 09:25
PROVIDERS: ADMIT Student in an Organized Health Care Education/Training Program; ATTEND Student in an Organized Health Care Education/Training Program
PROC: B246ZZZ Ultrasonography of Right and Left Heart (ICD-10-PCS; principal; 2025-01-30)
DX: J80 Acute respiratory distress syndrome (principal); J12.9 Viral pneumonia, unspecified; A41.9 Sepsis, unspecified organism; R65.21 Severe sepsis with septic shock; J18.9 Pneumonia, unspecified organism; E87.20 Acidosis, unspecified; Z66 Do not resuscitate; I25.10 Atherosclerotic heart disease of native coronary artery without angina pectoris; I11.0 Hypertensive heart disease with heart failure; M81.0 Age-related osteoporosis without current pathological fracture; E78.5 Hyperlipidemia, unspecified; M19.90 Unspecified osteoarthritis, unspecified site; B34.8 Other viral infections of unspecified site; I50.9 Heart failure, unspecified; I35.8 Other nonrheumatic aortic valve disorders; E87.6 Hypokalemia; Z95.5 Presence of coronary angioplasty implant and graft; Z79.82 Long term (current) use of aspirin; Z79.899 Other long term (current) drug therapy